=== PATIENT | male | born 1955 | race Caucasian/White ===

== ENCOUNTER → 2018-03-19 08:16 | Outpatient (POV) | payer BC, SELFPAY | PROVIDERS: Visit Provider Dentist | DX: Z00.00 Encounter for general adult medical examination without abnormal findings (principal) ==

== ENCOUNTER → 2018-06-24 07:52 | Outpatient (CLI) | payer BC, SELFPAY ==
[2018-06-24 10:03] LABS: Alanine Aminotransferase 51 U/L (12-78); Albumin Level 3.7 gm/dL (3.4-5.0); Albumin/Globulin Ratio 1.1 (1.1-1.8); Alkaline Phosphatase 86 U/L (46-116); Anion Gap 11.6 mEq/L (5-15); Aspartate Amino Transferase 24 U/L (15-37); Bilirubin,Total 0.7 mg/dL (0.2-1.0); Blood Urea Nitrogen 12 mg/dL (7-18); Carbon Dioxide 28 mmol/L (21.0-32.0); Chloride 106 mmol/L (98-107); Chol/HDL Ratio 3.6 (1-3.5); Cholesterol 164 mg/dL (140-200); Creatinine,Serum 1.12 mg/dL (0.70-1.30); Estimated Glomerular Filt Rate 66 ml/min (>60); GFR (African American) 80 ML/MIN (>60); Globulin 3.3 gm/dl (1.3-3.2); Glucose 106 mg/dL (74-106); HDL Cholesterol 45 mg/dL (27-67); LDL Cholesterol 107 mg/dL (0-130); Potassium 4.6 mmoL/L (3.5-5.1); Sodium 141 mmol/L (136-145); Triglycerides 58 mg/dL (30-200); VLDL Cholesterol 12 mg/dL (0-40)
== END ==
PROVIDERS: Visit Provider Family Medicine
DX: E78.5 Hyperlipidemia, unspecified (principal); I10 Essential (primary) hypertension
CPT/HCPCS: 36415; 80053; 80061

== ENCOUNTER → 2020-05-04 17:02 | Outpatient (CLI) | payer MEDICARE, BC, SELFPAY ==
[2020-05-08 12:47] LABS: Hepatitis B Surf Ab Quant <3.1 mIU/mL (Immunity>9.9)
[2020-05-08 14:10] LABS: Hep B Core Ab, Total Negative (Negative); Hep Be Ag Negative (Negative); Hepatitis B Core Antibody IgM Negative (Negative); Hepatitis B Surface Antigen Negative (Negative); Hepatitis Be Antibody Negative (Negative)
[2020-05-08 15:45] LABS: Hep B Surface Ab, Qual Non Reactive (.)
== END ==
PROVIDERS: Visit Provider Family Medicine
DX: R76.8 Other specified abnormal immunological findings in serum (principal); R89.9 Unspecified abnormal finding in specimens from other organs, systems and tissues
CPT/HCPCS: 36415; 86704; 86706; 86707; 87340; 87350

== ENCOUNTER → 2020-10-05 11:11 | Outpatient (CLI) | payer MEDICARE, BC, SELFPAY ==
[2020-10-06 08:14] LABS: PSA, Free 0.71 ng/mL; Prostate Specific Ag 4.7 ng/mL (0.0-4.0)
== END ==
PROVIDERS: Visit Provider Urology
DX: R97.20 Elevated prostate specific antigen [PSA] (principal)
CPT/HCPCS: 36415; 84153; 84154

== ENCOUNTER → 2021-04-10 08:10 | Outpatient (CLI) | payer MEDICARE, BC, SELFPAY ==
[2021-04-11 12:21] LABS: PSA, Free 0.83 ng/mL; Prostate Specific Ag 4.9 ng/mL (0.0-4.0)
== END ==
PROVIDERS: PCP Family Medicine; Visit Provider Urology
DX: R97.20 Elevated prostate specific antigen [PSA] (principal)
CPT/HCPCS: 36415; 84153; 84154

== ENCOUNTER → 2021-10-29 08:20 | Outpatient (CLI) | payer MEDICARE, BC, SELFPAY ==
[2021-10-30 10:14] LABS: PSA, Free 0.76 ng/mL; Prostate Specific Ag 4.1 ng/mL (0.0-4.0)
== END ==
PROVIDERS: PCP Family Medicine; Visit Provider Urology
DX: R97.20 Elevated prostate specific antigen [PSA] (principal)
CPT/HCPCS: 36415; 84153; 84154

== ENCOUNTER → 2023-02-24 11:48 | Outpatient (CLI) | payer MEDICARE, BC, SELFPAY ==
[2023-02-25 09:12] LABS: PSA, Free 1.12 ng/mL; Prostate Specific Ag 7.2 ng/mL (0.0-4.0)
== END ==
PROVIDERS: PCP Family Medicine; Visit Provider Urology
DX: C61 Malignant neoplasm of prostate (principal)
CPT/HCPCS: 36415; 84153; 84154

== ENCOUNTER 2024-03-01 10:05 | Outpatient (CLI) | payer MEDICARE, BC, SELFPAY ==
[2024-03-02 08:12] LABS: PSA, Free 1.07 ng/mL; Prostate Specific Ag 5.8 ng/mL (0.0-4.0)
== END 2024-03-01 23:59 | disposition home or self-care (01) ==
LOC: LAB 10:08
PROVIDERS: PCP Family Medicine; Visit Provider Urology
DX: R97.20 Elevated prostate specific antigen [PSA] (principal)
CPT/HCPCS: 36415; 84153; 84154

== ENCOUNTER 2024-09-24 08:57 | Outpatient (CLI) | payer MEDICARE, BC, SELFPAY ==
--- OUTSIDE RECORDS SUMMARY | 2024-09-24 09:01 | XMS_ITS ---
Author Organization Unknown Results OrderDate OrderTestName ResultName ResultDate Value Units Range AbnormalFlag ResultStatus ObservationNotes TestCode ResultCode DateRecorded AccessionNumber DiagnosticSectionCode DiagnosticSectionName Sequence Interpretation 12/11/2023 00:00:00 P-PSA PSA [id number]:00:00 6.93 ng/mL <4.00 - ng/mL H Reviewed [facility], IT support 12/12/2023 04:40:08 : This order was created by the Interface. Hakan Gonzalez 12/21/2023 10:07:55 PM > See phone encounter P-PSA 12/11/2023 00:00:001 00:00:00P-Lipid PanelTriglycerides 1080-75-37B04:00:0051mg/dL<150 - mg/dLReHakan Dee 12/21/2023 10:07:55 PM > See phone encounter Coding P-Lipid Panel 12/11/2023 00:00:001 00:00:00P-Lipid PanelNon-HDL Cholesterol 9208-23-34R85:00:08312vv/dL<130 - mg/dLHakan Wallace 12/21/2023 10:07:55 PM > See phone encounter Coding P-Lipid Panel 12/11/2023 00:00:001 00:00:00P-Lipid PanelLDL/HDL Ratio 9289-06-96Z57:00:002.2Ratio<3.3 - RatioReHakan Dee 12/21/2023 10:07:55 PM > See phone encounter Coding P-Lipid Panel 12/11/2023 00:00:001 00:00:00P-Lipid PanelLDL Cholesterol (Calculation) 9601-97-43O39:00:48961yq/dL<130 - mg/dLHakan Wallace 12/21/2023 10:07:55 PM > See phone encounter Coding P-Lipid Panel 12/11/2023 00:00:001 00:00:00P-Lipid PanelHDL Cholesterol 5841-14-26G17:00:0048mg/dL>39 - mg/dLHakan Wallace 12/21/2023 10:07:55 PM > See phone encounter Coding P-Lipid Panel 12/11/2023 00:00:001 00:00:00P-Lipid PanelCholesterol 4019-28-11H14:00:51527gn/dL<200 - mg/dLHakan Wallace 12/21/2023 10:07:55 PM > See phone encounter Coding P-Lipid Panel 12/11/2023 00:00: 00:00:00P-Lipid PanelCholesterol / HDL Ratio 4285-92-77H21:00:003.16Dtwwd7.00-4.99 - RatioHakan Wallace 12/21/2023 10:07:55 PM > See phone encounter Coding P-Lipid Panel 12/11/2023 00:00:001 00:00:00P-Comprehensive Metabolic Panel (CMP)eGFR by Xobohjqlow1969-12-15I53:00:0065mL/min/1.73m2>59 - mL/min/1.64r2TadlauamHakan Kam 12/21/2023 10:07:55 PM > See phone encounter Coding P-Comprehensive Metabolic Pa delia (CMP) 12/11/2023 00:00:001 00:00:00P-Comprehensive Metabolic Panel (CMP) Kepadsb5630-53-79E89:00:007.0g/dL6.0-8.3 - g/dLHakan Wallace 12/21/2023 10:07:55 PM > See phone encounter Coding P-Comprehensive Metabolic Pa delia (CMP) 12/11/2023 00:00: 00:00:00P-Comprehensive Metabolic Panel (CMP) Iqdtsp1241-28-00C51:00:77500isff/A617-686 - mmol/Hakan Metz 12/21/2023 10:07:55 PM > See phone encounter Coding P-Comprehensive Metabolic Pa delia (CMP) 12/11/2023 00:00: 00:00:00P-Comprehensive Metabolic Panel (CMP) Cwmhxyrjk0823-22-23U40:00:005.0mmol/L3.5-5.3 - mmol/Hakan Metz 12/21/2023 10:07:55 PM > See phone encounter Coding P-Comprehensive Metabolic Pa delia (CMP) 12/11/2023 00:00:001 00:00:00P-Comprehensive Metabolic Panel (CMP) Xxinbqn1811-38-49B01:00:40160dt/dL65-99 - mg/dLHakan Gilmore 12/21/2023 10:07:55 PM > See phone encounter Coding P-Comprehensive Metabolic Pa delia (CMP) 12/11/2023 00:00: 00:00:00P-Comprehensive Metabolic Panel (CMP) Fmwqihxxfl2707-24-31F71:00:001.20mg/dL0.70-1.30 - mg/dLHakan Wallace 12/21/2023 10:07:55 PM > See phone encounter Coding P-Comprehensive Metabolic Pa delia (CMP) 12/11/2023 00:00:001 00:00:00P-Comprehensive Metabolic Panel (CMP)CO2 4726-39-74V36:00:0026mmol/L22-32 - mmol/Hakan Metz 12/21/2023 10:07:55 PM > See phone encounter Coding P-Comprehensive Metabolic Pa delia (CMP) 12/11/2023 00:00: 00:00:00P-Comprehensive Metabolic Panel (CMP) Upwykypm9051-44-86E88:00:80853yokj/L97-108 - mmol/LReviewedNorfleetHakan 12/21/2023 10:07:55 PM > See phone encounter Coding P-Comprehensive Metabolic Pa delia (CMP) 12/11/2023 00:00:001 00:00:00P-Comprehensive Metabolic Panel (CMP) Hwlgfbs0771-26-35A70:00:009.6mg/dL8.6-10.4 - mg/dLHakan Wallace 12/21/2023 10:07:55 PM > See phone encounter Coding P-Comprehensive Metabolic Pa delia (CMP) 12/11/2023 00:00:001 00:00:00P-Comprehensive Metabolic Panel (CMP)BUN 3891-43-47P21:00:0019mg/dL8-23 - mg/dLHakan Wallace 12/21/2023 10:07:55 PM > See phone encounter Coding P-Comprehensive Metabolic Pa delia (CMP) 12/11/2023 00:00:001 00:00:00P-Comprehensive Metabolic Panel (CMP) Bilirubin, Qeeaw5241-78-57G23:00:001.4mg/dL<0.2-1.2 - mg/dLevHakan Plata 12/21/2023 10:07:55 PM > See phone encounter Coding P-Comprehensive Metabolic Pa delia (CMP) 12/11/2023 00:00: 00:00:00P-Comprehensive Metabolic Panel (CMP)AST (SGOT)3842-91-20X21:00:0024IU/L<5-46 - IU/LReviewedNorfleetHakan 12/21/2023 10:07:55 PM > See phone encounter Coding P-Comprehensive Metabolic Pa delia (CMP) 12/11/2023 00:00:001 00:00:00P-Comprehensive Metabolic Panel (CMP)ALT (SGPT)5259-73-25V39:00:0025IU/L<5-55 - IU/LReviewedNorfleetHakan 12/21/2023 10:07:55 PM > See phone encounter Coding P-Comprehensive Metabolic Pa delia (CMP) 12/11/2023 00:00:001 00:00:00P-Comprehensive Metabolic Panel (CMP) Alkaline Dyyunimzzmx8827-52-21W53:00:0078IU/L40-129 - IU/LRevHakan Plata 12/21/2023 10:07:55 PM > See phone encounter Coding P-Comprehensive Metabolic Pa delia (CMP) 12/11/2023 00:00:001 00:00:00P-Comprehensive Metabolic Panel (CMP) Flxkbes1163-70-93U58:00:004.5g/dL3.5-5.3 - g/dLHakan Wallace 12/21/2023 10:07:55 PM > See phone encounter Coding P-Comprehensive Metabolic Pa delia (CMP) 12/11/2023 00:00: 00:00:00P-Comprehensive Metabolic Panel (CMP)A/G Hxqmi8001-08-94O44:00:001.81.1-2.5 -Hakan Wallace 12/21/2023 10:07:55 PM > See phone encounter Coding P-Comprehensive Metabolic Pa delia (CMP) 12/11/2023 00:00:001 00:00:00Glycohemoglobin A1c (in house) fsghwlgwuqvrxjs8640-26-06V26:00:005.7%%5 - 6.5 %Marissa Torres 12/11/2023 10:29:15 AM > Hakan Gonzalez 12/21/2023 10:07:55 PM > See phone encounter Coding Glycohemoglobin A1c (in hous e) 12/11/2023 00:00:001 00:00:00P-Hepatitis Acute ProfileHepatitis C Antibody (HCV) XkJ3986-20-05Y33:00:00NonreactiveNonreactive -Hakan Wallace 12/29/2023 3:05:48 PM > reviewed Coding P-Hepatitis Acute Profile 12/25/2023 00:00:0010/ 00:00:00P-Hepatitis Acute ProfileHepatitis B Surface Antigen (HBsAg)0863-85-04F29:00:00NonreactiveNonreactive -Reviewed Hakan Gonzalez 12/29/2023 3:05:48 PM > reviewed Coding P-Hepatitis Acute Profile 12/25/2023 00:00:001 00:00:00P-Hepatitis Acute ProfileHepatitis B Core Antibody (HBcAb) RbA4137-18-31J11:00:00NonreactiveNonreactive -Hakan Kam 12/29/2023 3:05:48 PM > reviewed Coding P-Hepatitis Acute Profile 12/25/2023 00:00:001 00:00:00P-Hepatitis Acute ProfileHepatitis A Antibody, OrZ7187-99-59E79:00:00NonreactiveNonreactive -Hakan Wallace 12/29/2023 3:05:48 PM > reviewed Coding P-Hepatitis Acute Profile 12/25/2023 00:00:00
--- OUTSIDE RECORDS SUMMARY | 2024-09-24 09:01 | XMS_ITS | Data Portability ---
Author Organization [place] [facility] Address [address] [place] [address] Assessment No assessment recorded. Plan of Treatment Reminders Order Date Submit Date Provider Last Modified By Organization Details Last Modified Time Details Appointments OV EST 15 2024 09:45A M Lorne Magaña Jr, MD Not available Not available Not available Lab PSA, total + free, serum or plasma 2024 025 [email or web address] [facility] ([facility]), [address], [place], [address], 03/26/2024 06:54:31 PSA, total + free, serum or plasma 2023 024 [email or web address] [facility] (Lab), [address] [facility] [address], [place], [address], 03/26/2023 07:10:59 PSA, total + free, serum or plasma 2022 023 [email or web address] Not available 09/11/2022 07:46:43 Referral None recorded . Procedures None recorded . Surgeries None recorded . Imaging None recorded . Medication Orders None recorded . Patient TargetsNo targets recorded. Patient InstructionsNo instructions recorded. Reason for Referral None Reported. Results Created Date Observation Date Name Description Value Unit Range Abnormal Flag Note LastModifiedBy Organization Detail LastModifiedTime 09/05/1909/04/2022 PROST ATE SPECI FIC AG (PSA) prostate specific Ag (PSA) 6.59 NG/mL 0.0-4. 0 high Not Available [facility] (Lab Registration) [address] , [place], [address], 09/04/2022 16:14:11 09/05/19 23 09/04/2022 PROST ATE SPECI FIC AG (PSA) note Unles s other hogue noted testi ng perfo rmed at: [facility] [address] [place] [address] [phone] Valentin torres MD CLIA: [id number] Not Available [facility] (Lab Registration) [address] [place], [address], 09/04/2022 16:14:11 09/05/19 23 09/04/2022 PSA TOTAL + %FREE note Unles s other hogue noted testi ng perfo rmed at: [facility] [address] [place] [address] [phone] Valentin torres MD CLIA: [id number] Not Available [facility] (Lab Registration) [address] [place], [address], 09/06/2022 08:20:43 09/05/1909/06/2022 PSA TOTAL + %FREE prostate specific Ag, serum 5.6 NG/mL 0.0-4. 0 high Marci ECLIA metho dolog y. . Accor ding to the Ameri can Urolo gical Assoc iatio n, Serum PSA shoul d decre ase and remai n at undet ectab le level s after radic al prost atect mechelle. The AUA defin es bioch emica l recur rence as an initi al PSA value 0.2 ng/mL or great er follo wed by a subse quent confi rmato ry PSA value 0.2 ng/mL or great er. Value s obtai cam with diffe rent assay metho ds or kits canno t be used inter salcido eajuan franciscoy . Resul ts canno t be inter prete d as absol nuvia evide nce of the prese nce or absen ce of raymundo machuca se. Not Available [facility] (Lab Registration) [address], [place], [address], 09/06/2022 08:20:43 09/05/19 23 09/06/2022 PSA TOTAL + %FREE PSA, free 1.04 NG/mL n/a Marci ECLIA metho dolog y. Not Available [facility] (Lab Registration) [address] [place], [address], 09/06/2022 08:20:43 09/05/19 23 09/06/2022 PSA TOTAL + %FREE % free PSA 18.6 % The table below lists the proba bilit y of prost ate cance r for men with non-s uspic ious GONZALEZ resul ts and total PSA betwe en 4 and 10 ng/mL , by patie nt age (Licha shannon et al, ELENO 1998, 279:1 542). % Free PSA 50-64 yr 65-75 yr 0.00- 10.00 % 56% 55% 10.01 -15.0 0% 24% 35% 15.01 -20.0 0% 17% 23% 20.01 -25.0 0% 10% 20% >25.0 0% 5% 9% Pleas e note: Ady allison et al did not make speci fic recom menda tions regar ding the use of perce nt free PSA for any other popul ation of men. Perfo rmed at: [facility] [address] [place], [place] [id number] [facility] Lab Direc tor: Mert king PhD, Phone : [phone] Not Available [facility] (Lab Registration) [address] [place], [address], 09/06/2022 08:20:43 Result Notes None recorded. Problems Name Problem SNOMED Code Status Onset Date Resolution Date Notes Provider Name and Address Organization Details Recorded Time Hypertensive disorder 60914378 Active 2022 Mukesh fay, [place] [facility] [place] & [place] 3 09:22:13 Problem Notes None recorded. Procedures Surgical History Date Name Laterality Status Provider Name and Address Organization Details Recorded Time cholecystectomy completed Mukesh STACY [facility] & [place] 09/04/2022 09:28:52 Imaging Results None recorded. Procedure Notes None recorded. Medical Equipment None Reported. Allergies No known drug allergies Medications Name Sig Start Date Stop Date Status Note LastModified by Organization Details LastModified Time amoxicillin 500 mg capsule TAKE 1 CAPSULE BY MOUTH THREE TIMES DAILY FOR 7 DAYS active Not Available Not Available No t Available ibuprofen 800 mg tablet TAKE 1 TABLET BY MOUTH EVERY 6 HOURS NEEDED FOR PAIN active Not Available Not Available No t Available losartan 25 mg tablet TAKE 1 TABLET BY MOUTH DAILY active Not Available Not Available No t Available Vitals Date Recorded Body height Body mass index (BMI) Body weight Body temperature Provider Name and Address Organization Details Last Updated DateTime 03/19/2023 179.07 cm 27.6 kg/m2 30395.51 g 97.9 [degF] Mukesh STACY [facility] & [place] 03/19/2023 10:16:55 Date Recorded Body height Body mass index (BMI) Body weight Body temperature Provider Name and Address Organization Details Last Updated DateTime 03/19/2024 179.07 cm 27.6 kg/m2 57215.51 g 98.2 [degF] Mukesh STACY [facility] & [place] 03/19/2024 09:21:03 Date Recorded Body height Body mass index (BMI) Body weight Body temperature Provider Name and Address Organization Details Last Updated DateTime 09/04/2022 179.07 cm 27.6 kg/m2 79150.51 g 97.9 [degF] Mukesh Denis [facility] & [place] 09/04/2022 09:21:42 Date Recorded Body height Body mass index (BMI) Body weight Body temperature Provider Name and Address Organization Details Last Updated DateTime 09/17/2023 179.07 cm 27.6 kg/m2 91352.51 g 97.9 [degF] Mukesh STACY [facility] & [place] 09/17/2023 09:58:26 Social History Question Answer Notes LastModified by Organizat ion Details LastModified Time Tobacco Smoking Status Former Smoker [place] [facility] & [place] 09/04/2022 09:28:42 Has Tobacco Cessation Counseling Been Provided? No [email or web address] Information not available 09/04/2022 Sex: Unknown Functional Status Question Answer Note LastModified by Organization D etails LastModified Time What is your level of alcohol consumption? None [email or web address] Information not available 09/04/2022 Mental Status None recorded. Family History Relationship Description Onset Age of this Age Resolved Age Notes LastModified by Organization Details LastModified Time Father Malignant neoplastic disease DEC [email or web address] Not available 2022 09:27:53 Mother Family history unknown [email or web address] Not available 2022 09:28:17 Brother Family history unknown [email or web address] Not available 2022 09:28:17 Sister Family history unknown [email or web address] Not available 2022 09:28:17 Medical History No medical history recorded. Past Encounters Encounter ID Performer Location Encounter Start Date Encounter Closed Date Diagnosis/Indication Diagnosis SNOMED-CT Code Diagnosis ICD10 Code Diagnosis Note [id number] Lorne Magaña Jr, MD [facility] [address] [address] 09/04/2022 09:02:10 09/04/2022 10:12:33 Prostate specific antigen above reference range 693052040 R97.20 patient's PSA has been slightly elevated in the past. Prostate examinatio n today is benign. We will repeat a free and total PSA. If stable we will continue close monitoring . Benign pro static hyperplasia without outflow obstruction 609783665 N40.0 patient denies any significan t voiding problems at present. He does not wish to take any medication for the complaint of nocturia. [id number] Lorne Magaña Jr, MD [facility] [address] [address] 03/19/2023 10:14:12 03/19/2023 10:46:14 Prostate specific antigen above reference range 185823473 R97.20 Patient with history of elevated PSA. His most recent PSA showed a total PSA of 7.2 with a free PSA of 15.6 putting him at a 23% risk of prostate cancer. This is the same as it has been in the past as far as his risk. His total PSA is a little higher than previous. We again discussed options including biopsy versus continued watchful waiting and he is happy with six-month monitoring . Other causes for an elevated PSA include prostate enlargemen t and prostate congestion which he likely has. Benign pro static hyperplasia without outflow obstruction 016318228 N40.0 patient denies any significan t voiding problems at present. He does not wish to take any medication for the complaint of nocturia. [id number] [facility]aña Jr, [facility] [place] [address] 09/17/2023 09:50:15 09/17/2023 10:23:57 Prostate specific antigen above reference range 524346076 R97.20 Patient with history of elevated PSA. His most recent PSA showed a total PSA of 6.8 with a free PSA of 17.6 putting him at a 23% risk of prostate cancer. This is the same as it has been in the past as far as his risk. His total PSA is a little lower than previous. We again discussed options including biopsy versus continued watchful waiting and he is happy with six-month monitoring . Other causes for an elevated PSA include prostate enlargemen t and prostate congestion which he likely has. Benign pro static hyperplasia without outflow obstruction 904153517 N40.0 patient denies any significan t voiding problems at present. He does not wish to take any medication for the complaint of nocturia. [id number] Lorne Magaña Jr, MD [address] [address] 03/19/2024 09:06:56 03/19/2024 09:59:36 Prostate specific antigen above reference range 416754683 R97.20 Patient with history of elevated PSA. His most recent PSA showed a total PSA of 5.8 with a free PSA putting him at a 23% risk of prostate cancer. This is the same as it has been in the past as far as his risk. His total PSA is a little lower than previous. We again discussed options including biopsy versus continued watchful waiting and he is happy with six-month monitoring . Other causes for an elevated PSA include prostate enlargemen t and prostate congestion which he likely has. Benign pro static hyperplasia without outflow obstruction 732943646 N40.0 patient denies any significan t voiding problems at present. He does not wish to take any medication for the complaint of nocturia. Health Concerns Section Related Observation LastModified by Organization Detai ls LastModified Time None Recorded Concern Status LastModified by Organization Details LastModified Time None Recorded Advance Directives Directive None Recorded Payers Insurance Date Sequence Insurance Name Policy Number Policy Ye Covered Member ID Ye Member ID Guarantor Name 03/22/2024 2 [place] [id number] Harpal Santee [id number] Harpal D Twan 03/16/2024 1 [place] Harpal D Twan [id number] Harpal D Santee Notes Date Note Type Note Provider Name and Address Organization Details Recorded Time 09/04/2022 text/html patient is a 67-year-old white male with history of elevated PSA and BPH without obstruction. I previously saw the patient at [facility]. His last visit was November 2021. Previous PSAs have been 4.1 in October 2021, his free PSA put him at 23% chance of prostate cancer at that time. Patient is known to have a 50 g prostate and was boggy by previous examination. Patient has been sexually abstinent since his about 11 years ago. Previous PSAs were 4.9 in April 2021, 4.7 on September 2020, 5.0 in July 2020, 4.3 in January 2020 and 3.8 in December 2018. Prostate massage in the past has elicited copious secretions from the prostate. He denies any sexual activity since last seen. He denies any voiding symptoms other than nocturia 2-3 times. Lorne Magaña Jr, MD [address] [place] [address], [address], [place], [address], [place] [facility] 09/04/2022 11:47:33 03/19/2023 text/html patient is a 67-year-old white male with a history of elevated PSA and BPH without obstruction. He returns today for six-month follow-up. His most recent PSA was 7.2 with a free PSA of 15.6 putting him at a 23% risk of prostate cancer. This PSA was performed at [facility] 2 weeks ago. Previous PSA was drawn August 2022 was 5.6 with a free PSA of 18.6 again putting him at a 23% risk of prostate cancer. Previous PSAs were 4.1 in October 2021, 4.9 in April 2021, 4.7 in September 2020, 5.0 in July 2020, 4.3 in January 2020, 3.8 in December 2018. His prostate is known to be at least 50 g and boggy by previous examination. Patient is abstinent from sexual activity. Patient denies any lower urinary tract symptoms. Lorne Magaña Jr, MD [address] [place] [address], [address], [place], [address], [facility] & [place] 03/19/2023 14:20:41 09/17/2023 text/html Patient is a 68-year-old white male with history of elevated PSA and BPH without obstruction. He returns today for six-month follow-up. His recent PSA was 6.8 with a free PSA putting him at a 23% risk of prostate cancer. This is stable from previous PSAs. PSA 6 months ago was 7.2 with a free PSA putting him at a 23% risk of prostate cancer as well. Previous PSAs were 5.6 in August 2022, 4.1 in October 2021, 4.9 in April 2021, 4.7 in September 2020, 5.0 in July 2020, 4.3 in January 2020, 3.8 in December 2018. Prostate is known to be least 50 g and boggy by previous examination. Patient's risk factors include sexual abstinence. Denies any lower urinary tract symptoms. Lorne Magaña Jr, MD [address] [facility], [address], [place], [address], [facility] & [place] 09/17/2023 11:18:55 03/19/2024 text/html Patient is a 68-year-old white male with history of elevated PSA and BPH without obstruction. He returns today for six-month follow-up. His recent PSA was 5.8 with free PSa putting him at 23% risk. Previous PSA in August was 6.8 with a free PSA putting him at a 23% risk of prostate cancer. This is stable from previous PSAs. PSA 6 months ago was 7.2 with a free PSA putting him at a 23% risk of prostate cancer as well. Previous PSAs were 5.6 in August 2022, 4.1 in October 2021, 4.9 in April 2021, 4.7 in September 2020, 5.0 in July 2020, 4.3 in January 2020, 3.8 in December 2018. Prostate is known to be least 50 g and boggy by previous examination. Patient's risk factors include sexual abstinence but he does have a new girlfriend. He has also been more physically active. Denies any lower urinary tract symptoms. He has not had a biopsy. Lorne Magaña Jr, MD [address] [place] [address], [address], [place], [address], [facility] - [facility] - [place] & [place] 03/19/2024 13:36:37
--- OUTSIDE RECORDS SUMMARY | 2024-09-24 09:01 | XMS_ITS | Clinical Summary ---
Author Organization [facility] Address [address] [place] [address] Care Team Providers Care Qa Test Lead Name Role Phone Joseph Gonzalez MD Primary Care Provider Allergies No known active allergies Medications No known medications Active Problems No known active problems Family History Medical History Relation Name Comments Alcohol abuse Brother Hypertension Brother Cancer Father Diabetes Father Hypertension Father Cancer Mother Hypertension Mother Relation Name Status Comments Brother Father Mother Social History Tobacco Use Types Packs/Day Years Used Date Smoking Tobacco: Former Cigarettes Q uit: 03/26/1985 Smokeless Tobacco: Never Alcohol Use Standard Drinks/Week Comments No 0 (1 standard drink = 0.6 oz pur e alcohol) Abuse Screen Answer Date Recorded Unsafe at Home or Work/School Not on file Feels Threatened by Someone? Not on file 11/2022 Does Anyone Keep You from Co ntacting Others or Doint Things Outside the Home? Not on file 12/16/2022 Physical Sign of Abuse Present Not on file 1 Housing Stability Answer Date Recorded Current Living Arrangements Not on file 11/2022 Potentially Unsafe Housing Conditions Not on nell e 12/16/2022 Family and Community Support Answer Yogesh e Recorded Help with Day-to-Day Activities Not on file 12/16/2022 Lonely or Isolated Not on file 12/16/2022 Employment Answer Date Recorded Do you want help finding or keeping work or a rosalva b? Not on file 12/16/2022 Disabilities Answer Date Recorded Concentrating, Remembering, or Making Decisions Difficulty Not on file 12/16/2022 Doing Errands Independently Difficulty Not on fi le 12/16/2022 Education Answer Date Recorded Help with school or training? Not on file Preferred Language Not on file 12/16/2022 Sex and Gender Information Value Date Recorded Sex Assigned at Not on file Legal Sex Male 1:31 PM EDT Gender Identity Not on file Sexual Orientation Not on file Last Filed Vital Signs Vital Sign Reading Time Taken Comments Blood Pressure 134/78 03/26/2016 2:21 PM EST Pulse - - Temperature - - Respiratory Rate - - Oxygen Saturation - - Inhaled Oxygen Concentration - - Weight 92.1 kg (203 lb) 03/26/2016 2:21 PM EST Height 179.1 cm (5' 10.5 ) 03/26/2016 2:21 PM ES T Body Mass Index 28.72 03/26/2016 2:21 PM EST Plan of Treatment Health Maintenance Due Date Last Done Comments ANNUAL PHYSICAL 1955 HEPATITIS C SCREENING 1953 TDAP/TD VACCINES (1 - Tdap) 1972 COLOGUARD 1998 COLON CANCER SCREENING 5 YEAR SIGMOIDOSCOPY 1998 COLONOSCOPY 1998 COLORECTAL CANCER SCREENING 1998 CT COLONOGRAPHY 1998 FECAL OCCULT BLOOD TEST 1998 FIT Testing (1 year) 1998 Pneumococcal Vaccine 50+ (1 of 1 - PCV) 07/20/2003 ZOSTER VACCINE (1 of 2) 07/20/2003 AAA SCREEN ONCE 2018 COVID-19 Vaccine ( - 2023- season) 2023 INFLUENZA VACCINE 12/08/[address] [address] [place] [address] PPO Member Subscriber Plan / Payer (Ef fective 2007-Present) Name:Harpal Trent Relation to Subscriber:Self Name:Harpal Trent Payer ID:[id number] (NAIC) Type:Not on file Address: [address] [place] [id number] Care Teams Qa Test Lead Relationship Specialty Start Date End Date Joseph Gonzalez MD [address] [place] [address] [address] [place] [address] PCP - General Family Medicine 03/26/16
[2024-09-25 10:18] LABS: PSA, Free 1.11 ng/mL
== END 2024-09-24 23:59 | disposition home or self-care (01) ==
LOC: LAB 08:59
PROVIDERS: PCP Family Medicine; Visit Provider Urology
DX: R97.20 Elevated prostate specific antigen [PSA] (principal)
CPT/HCPCS: 36415; 84153; 84154

== ENCOUNTER 2024-10-20 09:33 | Day surgery (SDC) | payer MEDICARE, BC, SELFPAY ==
[2024-10-19 11:49] VITALS: BMI 28.4
--- NOTE | 2024-10-19 14:15 | EXP.HP ---
History of Present Illness *Admission Date: 10/20/24 *Reason for visit:: Screening for colon cancer *History of present illness: Mr. Trent is a 69-year-old gentleman who is here for screening colonoscopy. The examination is deemed medically necessary for screening colonoscopy. The patient has been seen, interviewed and examined prior to the procedure by both myself and the anesthesia provider. [facility] Disclaimer: The information contained in this section may have been updated after the patient was seen, as this information can be updated by other users. Medical History Hx of hemorrhoids Hypertension Surgical History Hx of cholecystectomy Family History Other Family history of cancer Social History Smoking Status: Former smoker second hand exposure: No alcohol intake: never substance use type: denies use current occupational status: retired Travel in the last 8 weeks?: None household members: spouse housing: house Have you lived/traveled outside US in past 30 days?: No Contact w/someone who lives/traveled outside US past 30 days?: No Exposure to someone with infectious disease in past 14 days?: No Do you have a fever (greater than 100.4 F or 38 C)?: No Have you tested positive for COVID-19?: No Exposed to someone with COVID-19 in past 14 days?: No Do you have a sore throat?: No Do you have a cough?: No Do you have any weakness?: No Do you have any diarrhea?: No Are you experiencing any unusual bleeding?: No Do you have any muscle aches/pain?: No Do you have any abdominal pain?: No Are you experiencing loss of taste or smell?: No Other Medical History Have you received the Pneumonia Vaccine: Yes Review of Systems Review of Systems Review of systems (narrative): Negative *Cardiovascular Comments: Negative *Gastrointestinal Comments: Negative *Genitourinary Comments: Negative *Musculoskeletal Comments: Negative *Neurologic Comments: Negative Meds Home Medications and Allergies Home Medications ?Medication ?Instructions ?Recorded ?Confirmed ?Type losartan 25 mg tablet 25 mg PO DAILY 90 days 01/23/18 10/20/24 History beta carotene 7,500 mcg (25,000 7,500 mcg PO DAILY 10/19/24 10/20/24 History unit) capsule glucosamine-chondroitin 250 mg-200 1 tab PO DAILY 10/19/24 10/20/24 History mg tablet multivitamin 1 tab PO DAILY 10/19/24 10/20/24 History New Prescriptions to Start Prescriptions: Allergies Allergy/AdvReac Type Severity Reaction Status Date / Time bacitracin (From NEOSPORIN Allergy Mild redness Verified 10/20/24 11:13 ([id number])) neomycin (From NEOSPORIN Allergy Mild redness Verified 10/20/24 11:13 ([id number])) polymyxin B (From NEOSPORIN Allergy Mild redness Verified 10/20/24 11:13 ([id number])) Exam Data for Last 24 hours I & O for Last 24 hours: Intake & Output 10/16/24 10/17/24 10/18/24 10/19/24 23:59 23:59 23:59 23:59 Weight 198 lb *Routine HEENT Exam Head: Present normocephalic Eye: Present EOMI and PERRL ENT: Present mucous membranes moist *Routine Neck Exam Neck: Present supple *Routine Respiratory Exam Respiratory: Present CTA bilaterally *Routine Cardiovascular Exam Cardiovascular: Present RRR *Routine Abdominal Exam Abdominal: Present soft and normoactive bowel sounds; Absent tenderness *Routine Rectal Exam Rectal:: deferred *Routine Genitalia Exam Genitalia:: deferred *Routine Extremities Exam Extremities: Absent cyanosis, clubbing or edema *Routine Skin Exam Skin: Present warm; Absent rash *Routine Neurological Exam Neurological: Present alert and oriented X3 Assessment and Plan *Assessment and plan (1) Screening for colon cancer: Status: Acute Category: Medical Code(s): Z12.11 - Encounter for screening for malignant neoplasm of colon Plan A/P: 1. Screening for colon cancer is the preprocedural diagnosis. The patient will be anesthetized/sedated using MAC sedation. The patient has been seen and examined. Cardiac and lung assessment prior to the examination is stable. Proceed with planned screening colonoscopy.
[2024-10-20] MEDS: LACTATED RINGERS 1000ML 1,000 ML 50 ML IV (11:12)
[2024-10-20 11:15] VITALS: BP 147/76; PULSE 79; RESP 16; TEMP 36.2; O2SAT 95
--- NOTE | 2024-10-20 11:34 | EXP.ANES.CKL ---
[facility] Disclaimer: The information contained in this section may have been updated after the patient was seen, as this information can be updated by other users. Medical History Hx of hemorrhoids Hypertension Surgical History Hx of cholecystectomy Family History Other Family history of cancer Social History Smoking Status: Former smoker second hand exposure: No alcohol intake: never substance use type: denies use current occupational status: retired Travel in the last 8 weeks?: None household members: spouse housing: house Have you lived/traveled outside US in past 30 days?: No Contact w/someone who lives/traveled outside US past 30 days?: No Exposure to someone with infectious disease in past 14 days?: No Do you have a fever (greater than 100.4 F or 38 C)?: No Have you tested positive for COVID-19?: No Exposed to someone with COVID-19 in past 14 days?: No Do you have a sore throat?: No Do you have a cough?: No Do you have any weakness?: No Do you have any diarrhea?: No Are you experiencing any unusual bleeding?: No Do you have any muscle aches/pain?: No Do you have any abdominal pain?: No Are you experiencing loss of taste or smell?: No [facility] Anesthesia Checklist Patient Identification Patient Identification: Arm Band Structural Data Admitted From: Home Planned Operative Procedure/s: Colonoscopy Consent for Planned Operative Procedure(s) Verified: Yes Verified Documents: Surgical Consent and History and Physical NPO Status Verified Time NPO: 00:00 Additional verifications Anesthesia Reactions: No Airway Assessment Mallampati Score:: Class II C-Spine Mobility Assessed: Yes TMJ Mobility Assessed: Yes Dentition: Good Dentition Neurological Assessment Level of Consciousness: Awake, Alert and Appropriate Anesthesia Plan Anesthesia Risk discussed: Yes Anesthesia Plan: Verified ASA Class: II Anesthesia Type: MAC
--- NOTE | 2024-10-20 11:40 | P.PCN_ITS ---
[facility] Procedure Note Date: 10/20/24 Time: 11:58 Procedure Note:: Colonoscopy Procedure Report: Colonoscopy with cold snare polypectomy Endoscopist: Darryl Bell II, MD Referring physician: Mark Gonzalez MD Date of Procedure: October 20, 2024 Equipment: Olympus [id number] adult colonoscope Sedation: MAC sedation Indication: Mr. Trent is a 69-year-old gentleman who is here for follow-up screening/surveillance colonoscopy. The patient's last colonoscopy 10 years ago (at [facility]) was normal. He reports no abdominal pain, weight loss, change in his bowel habits or rectal bleeding. He does state that his maternal grandfather may have had colon cancer. Procedure: Prior to the procedure, a history and physical exam was performed, and patient's medications and allergies were reviewed. The risks, benefits and alternatives of the sedation and procedure were discussed with the patient. All questions were answered and informed consent was obtained. The patient was brought to the procedure room. Patient identification and proposed procedure were verified by the physician and the nurse. The patient was placed in a left lateral decubitus position and the scope was passed under direct vision. Throughout the procedure, the patient's blood pressure, pulse, and oxygen saturations were monitored continuously. The colonoscopy was accomplished without difficulty. The patient tolerated the procedure well. Findings: On digital rectal examination there was normal rectal tone. There were no external hemorrhoids. There was mild internal hemorrhoid prolapse. The prostate was 3+, mildly enlarged but smooth, soft, symmetric without nodules. The colonoscope was introduced through the anal canal to the rectum and advanced to the cecum. The ileocecal valve and appendiceal orifice were identified. The scope was advanced a short distance into the ileum which appeared grossly normal. The scope was then withdrawn into the colon. There were 4 polyps (ascending x 1 (3 mm), descending x 1 (4 mm) and rectal x 2 (3 and 5 mm)). These were all removed via cold snare polypectomy. The remaining cecum, ascending, transverse, descending, sigmoid and rectum were grossly normal. There were no mucosal abnormalities identified. Upon retroflexion within the rectum there were grade 2?3 internal hemorrhoids. The preparation was excellent throughout with [place] Preparation Score of 9. The cecal time was 12 minutes. Impression: 1. Diminutive colonic polyps x 4 2. Grade 2-3 internal hemorrhoids Plan: I will follow-up the polyp histology and recommend repeat surveillance colonoscopy in 5 to 7 years. I would encourage psyllium bulking fiber supple mentation on a long-term daily maintenance basis.
[2024-10-20 12:00] VITALS: BP 87/54; PULSE 59; RESP 18; TEMP 36.4; O2SAT 93
[2024-10-20 12:10] VITALS: BP 82/43; PULSE 71; RESP 18; O2SAT 95
[2024-10-20 12:20] VITALS: BP 86/56; PULSE 69; RESP 18; O2SAT 96
[2024-10-20 12:30] VITALS: BP 100/47; PULSE 64; RESP 18; O2SAT 96
== END 2024-10-20 12:47 | disposition home or self-care (01) ==
PROVIDERS: PCP Family Medicine; Visit Provider Internal Medicine Gastroenterology
PROC: 0DJD8ZZ Inspection of Lower Intestinal Tract, Via Natural or Artificial Opening Endoscopic (ICD-10-PCS; CPT 45378; principal; 2024-10-20 11:30)
DX: Z12.11 Encounter for screening for malignant neoplasm of colon (principal); D12.2 Benign neoplasm of ascending colon; D12.8 Benign neoplasm of rectum; K64.1 Second degree hemorrhoids; K64.2 Third degree hemorrhoids; I10 Essential (primary) hypertension; Z87.891 Personal history of nicotine dependence; Z88.1 Allergy status to other antibiotic agents; Z79.899 Other long term (current) drug therapy
CPT/HCPCS: 45385; J2003; J2704; J7120